=== PATIENT | female | born 1940 | race Hispanic/Latino ===

== ENCOUNTER → 2018-04-16 | Outpatient (CLI) | payer OTHER ==
[~2018-04-16] MED LIST: LIDOCAINE HCL-MPF 2% 5ML VIAL ONE
[2018-04-16 08:30] LABS: INR 1.01 (0.85-1.15); PROTHROMBIN TIME 10.6 SEC (9.6-11.6)
== END | disposition home or self-care (01) ==
LOC: RAH 07:43
PROVIDERS: ATTEND Otolaryngology
DX: E04.1 Nontoxic single thyroid nodule (principal); E11.9 Type 2 diabetes mellitus without complications; I10 Essential (primary) hypertension
CPT/HCPCS: 36415; 60100; 76942; 85610; 85730; 88161; 88173; 88305 ×2; A4215; J3490

== ENCOUNTER → 2021-01-29 | Outpatient (CLI) | payer BC | END | disposition home or self-care (01) | LOC: RAH 14:19 | PROVIDERS: ATTEND Internal Medicine Critical Care Medicine | DX: I87.309 Chronic venous hypertension (idiopathic) without complications of unspecified lower extremity (principal); I70.203 Unspecified atherosclerosis of native arteries of extremities, bilateral legs; I70.293 Other atherosclerosis of native arteries of extremities, bilateral legs | CPT/HCPCS: 93925; 93970 ==

== ENCOUNTER → 2021-02-18 | Outpatient (CLI) | payer BC ==
[~2021-02-18] MED LIST changes: +IOHEXOL-350 75 ML VIAL IV ONE; -LIDOCAINE HCL-MPF 2% 5ML VIAL ONE
== END | disposition home or self-care (01) ==
LOC: RAH 08:02
PROVIDERS: ATTEND Internal Medicine Critical Care Medicine
DX: J90 Pleural effusion, not elsewhere classified (principal); J98.11 Atelectasis; I31.3 Pericardial effusion (noninflammatory); I25.10 Atherosclerotic heart disease of native coronary artery without angina pectoris; R19.00 Intra-abdominal and pelvic swelling, mass and lump, unspecified site
CPT/HCPCS: 74177; Q9967